=== PATIENT | male | born 1955 | race Caucasian/White ===

== ENCOUNTER 2016-11-11 08:40 | Day surgery (SDC) | payer BC ==
[~2016-11-11] VITALS: Ht 177.8 cm; Wt 90.7 kg
[~2016-11-11 08:40] MED LIST: ALPRAZOLAM0.25 MG PO; ALTACE5 MG PO; NORCO 5-325 TA1 EACH PO; SERTRALINE HCL100 MG PO; SLEEPING50 MG PO
--- NOTE | 2016-11-11 09:38 | NUR ---
11/11/16 0938 Anaid Lazo 7984-PATIENT ARRIVED TO PACU ON 6L MASK O2 SAT 100% PATIENT LAYING LEFT LATERAL ABD SOFT AND ROUND. NONAROUSABLE.
--- NOTE | 2016-11-20 12:08 | OR ---
[facility] [address], [place] [address] Signed DATE OF SERVICE: 11/11/2016 PREOPERATIVE DIAGNOSIS: Personal history of colonic polyps. POSTOPERATIVE DIAGNOSES: Four millimeter polyps in cecum, mid right colon, distal right colon, 95 cm, 60 cm, 35 cm, and 6 cm. Moderate sigmoid diverticulosis. PROCEDURE: Colonoscopy with hot biopsy. ESTIMATED BLOOD LOSS: None. INDICATIONS: Westley is a 61-year-old gentleman, who was asked to see me for a colonoscopy. Apparently in his 40s, he had a colonoscopy and he is quite certain that he had colonic polyps removed. He said currently he has no lower GI complaints. There is no family history of colon cancer or polyps. In the office, I gave Westley a booklet on colonoscopy, and we reviewed the nature of that test along with its risks, including but not limited to, gas, bloating, crampy abdominal pain, bleeding, perforation requiring surgery, and missed diagnosis. We also discussed the need for IV conscious sedation. Given his daily need for alprazolam along with daily alcohol intake, we asked that an Anesthesia provider help us with increased monitoring and sedation with propofol. He had expressed understanding and wished to proceed. PROCEDURE NOTE: Westley was taken into our endoscopy suite and placed in the left lateral decubitus position. He was given IV sedation with propofol per nurse application lead. A digital rectal exam was performed and this was unremarkable. He was starting to get some induration to the prostate gland. The adult colonoscope was then introduced and advanced all around into the cecum under direct visualization of the camera without difficulty. His prep was quite good. The scope was then s lowly withdrawn. The above-mentioned polyps were easily removed with the help of hot biopsy forceps. In the sigmoid colon, he does have moderate diverticulosis. They were moderate in number, moderate in size, and scattered about. Upon retroflexion of the scope, he had just a tiny polyp above the anal canal, which we took out with the hot biopsy forceps. After this, the gas was suctioned out and colonoscope removed. Westley tolerated the procedure quite well. RECOMMENDATIONS: I will see Westley back in my office in 7 to 14 days to review his results. Electronically Signed By: KELTON MOMIN MD 11/20/16 1208 PATIENT NAME: WESTLEY AQUINO OPERATIVE REPORT DATE OF : 59 PHYSICIAN: KELTON MOMIN MD REPORT #: [id number] REPORT IS CONFIDENTIAL AND NOT TO BE RELEASED WITHOUT AUTHORIZATION [facility] [address] [place] [id number] Signed MD CONNER Hines/Modl /[id number] cc: Keagan Lara, Patient's Chart Kelton Momin MD Electronically Signed By: KELTON MOMIN MD 11/20/16 1208 PATIENT NAME: WESTLEY AQUINO OPERATIVE REPORT DATE OF : 59 PHYSICIAN: KELTON MOMIN MD REPORT #: [id number] REPORT IS CONFIDENTIAL AND NOT TO BE RELEASED WITHOUT AUTHORIZATION
== END 2016-11-11 10:10 | disposition home or self-care (01) ==
LOC: OPS 08:40 → DS 08:40 → OPS 08:54
PROVIDERS: Colon & Rectal Surgery
PROC: 0DBK8ZX Excision of Ascending Colon, Via Natural or Artificial Opening Endoscopic, Diagnostic (ICD-10-PCS; 2016-11-11)
PROC: 0DBP8ZX Excision of Rectum, Via Natural or Artificial Opening Endoscopic, Diagnostic (ICD-10-PCS; 2016-11-11)
PROC: 0DBF8ZX Excision of Right Large Intestine, Via Natural or Artificial Opening Endoscopic, Diagnostic (ICD-10-PCS; 2016-11-11)
PROC: 0DBH8ZX Excision of Cecum, Via Natural or Artificial Opening Endoscopic, Diagnostic (ICD-10-PCS; principal; 2016-11-11 10:45)
DX: Z12.11 Encounter for screening for malignant neoplasm of colon (principal); D12.2 Benign neoplasm of ascending colon; K63.5 Polyp of colon; K62.1 Rectal polyp; K57.30 Diverticulosis of large intestine without perforation or abscess without bleeding; I10 Essential (primary) hypertension; Z86.010 Personal history of colon polyps; E78.00 Pure hypercholesterolemia, unspecified; F32.9 Major depressive disorder, single episode, unspecified; F41.9 Anxiety disorder, unspecified; Z85.828 Personal history of other malignant neoplasm of skin; Z90.89 Acquired absence of other organs; Z98.890 Other specified postprocedural states
CPT/HCPCS: 00810; J2250; J2704; J3010; J7120